=== PATIENT | male | born 1995 | race Caucasian/White ===

== ENCOUNTER 2022-01-23 06:41 | Emergency (ER) | payer SELFPAY ==
[~2022-01-23] VITALS: Ht 185.4 cm; Wt 109.0 kg
[~2022-01-23 06:41] MED LIST: AMOXICILLIN500 MG OR; AUGMENTIN875TAB PO; CLARITIN10 M1 PO; GARDASIL IM; MENACTRA PO; MOTRIN200 M1; PRILOSEC20 MG; PRILOSEC20 MG PO; PRILOSEC20 MG/CAP PO; TESSALON200 MG PO; TYLENOL325 MG; ZITHROMAX500 MG PO
[2022-01-23] MEDS ORDERED: CEPHALEXIN500 MG PO (08:11)
[2022-01-23] MEDS ORDERED: MUPIROCIN21 TOP (08:15)
[2022-01-23 08:26] VITALS: BP 140/74
== END 2022-01-23 08:40 | disposition home or self-care (01) | DRG 605 ==
LOC: ED 06:41
DX: S61.215A Laceration without foreign body of left ring finger without damage to nail, initial encounter (principal); W22.8XXA Striking against or struck by other objects, initial encounter; Y92.524 Gas station as the place of occurrence of the external cause